=== PATIENT | female | born 1970 ===

== ENCOUNTER 2016-11-30 05:32 | Emergency (ER) | payer SELFPAY ==
[2016-11-30 05:47] VITALS: BP 155/95
[2016-11-30 06:07] LABS: Basophils % (Auto) 0.9 % (0.0-1.8); Eosinophils % (Auto) 2.6 % (0.0-4.3); Hematocrit 38.9 % (30.3-42.9); Hemoglobin 13.1 gm/dl (10.1-14.3); Mean Corpuscular HGB Conc 34 % (30-34); Mean Corpuscular Hemoglobin 30 pg (28-32); Mean Corpuscular Volume 90 fl (79-97); Platelet Count 130 K/mm3 (140-440); Red Blood Count 4.31 M/mm3 (3.65-5.03); Red Cell Distribution Width 13.4 % (13.2-15.2)
--- NOTE | 2016-11-30 06:12 | XRay Report ---
FINAL REPORT EXAM: XR CHEST ROUTINE 2V HISTORY: SOB TECHNIQUE: Chest, two views PRIORS: None. FINDINGS: There is no cardiomegaly seen. There is, however, diffuse interstitial prominence with appearance suggesting interstitial infiltrate/edema. Chronic interstitial changes are possible but less likely. No prior study is available for comparison at this time. There is some atelectasis versus infiltrate in the left upper lobe. There is no pleural effusion or pneumothorax. IMPRESSION: Diffuse interstitial prominence which may represent interstitial infiltrate/edema. Chronic interstitial changes are alternatively possible but somewhat less likely. Comparison with the prior study would be helpful to differentiate.
[2016-11-30 06:19] LABS: Anion Gap 18 mmol/L; Blood Urea Nitrogen 12 mg/dL (7-17); Calcium 8.8 mg/dL (8.4-10.2); Carbon Dioxide 24 mmol/L (22-30); Chloride 102.8 mmol/L (98-107); Glucose 162 mg/dL (65-100); Potassium 4.1 mmol/L (3.6-5.0); Sodium 141 mmol/L (137-145)
== END 2016-11-30 05:51 | disposition left against medical advice (07) ==
LOC: ED 05:32
DX: Z00.00 Encounter for general adult medical examination without abnormal findings (principal); Z53.21 Procedure and treatment not carried out due to patient leaving prior to being seen by health care provider
CPT/HCPCS: 36415; 71020; 80048; 85025; 93005; 93010